=== PATIENT | male | born 1945 | race Caucasian/White ===

== ENCOUNTER 2016-08-21 12:51 | Emergency (ER) | payer BC, MEDICARE ==
[~2016-08-21] VITALS: Ht 180.3 cm; Wt 92.0 kg
[2016-08-21 12:54] VITALS: BP 125/72; PULSE 100; RESP 20; TEMP 98.2; O2SAT 96
--- NOTE | 2016-08-21 13:20 | PD ---
HPI Chief Complaint: Complaint Time Seen by Provider: 13:06 Travel History International Travel<30 days: No Contact w/Intl Traveler<30days: No Traveled to known affect area: No History of Present Illness HPI This patient complains of inability to urinate. Duration 8 hours. Severity is moderate. He feels like his bladder is full and distended. He has history of enlarged prostate. He recently underwent biopsy to rule out prostate cancer but doesn't have results of that yet. Symptoms have no alleviating factors. PFSH Social History Alcohol Use: No Tobacco Use: No Substance Use: No Allergies-Medications (Allergen,Severity, Reaction): Coded Allergies: No Known Allergies (Unverified , 08/21/16) Review of Systems General / Constitutional: No: Fever Eyes: No: Visual changes HENT: No: Headaches Cardiovascular: No: Chest Pain or Discomfort Respiratory: No: Shortness of Breath Gastrointestinal: No: Abdominal Pain Genitourinary: Positive: Decreased Urinary Output, Hesitancy, No: Dysuria Musculoskeletal: No: Pain Skin: No Rash Neurologic: No: Weakness Psychiatric: No: Depression Endocrine: No: Polydipsia Hematologic/Lymphatic: No: Easy Bruising Physical Exam Narrative GENERAL: Well-nourished, well-developed patient in no apparent distress. SKIN: Focused skin assessment reveals no rash and nodules. Skin is Warm and dry. HEAD: Atraumatic. Normocephalic. EYES: Pupils equal and round. No scleral icterus. No injection or drainage. ENT: No nasal bleeding or discharge. Mucous membranes pink and moist. NECK: Trachea midline. No JVD. CARDIOVASCULAR: Regular rate and rhythm. No murmur appreciated. RESPIRATORY: No accessory muscle use. Clear to auscultation. Breath sounds equal bilaterally. GASTROINTESTINAL: Abdomen soft, some suprapubic tenderness and distention. Hepatic and splenic margins not palpable. MUSCULOSKELETAL: No obvious deformities. No clubbing. No cyanosis. No edema. NEUROLOGICAL: Awake and alert. No obvious cranial nerve deficits. Motor grossly within normal limits. Normal speech. PSYCHIATRIC: Appropriate mood and affect; insight and judgment normal. Data Data Last Documented VS Vital Signs Date Time Temp Pulse Resp B/P Pulse Ox O2 Delivery O2 Flow Rate FiO2 08/21/16 12:54 98.2 100 20 125/72 96 Room Air Orders Urinary Catheter Insert/Apply (08/21/16 13:12) [facility] Medical Decision Making Medical Screen Exam Complete: Yes Emergency Medical Condition: Yes Medical Record Reviewed: Yes Differential Diagnosis Urinary retention, urethral stricture, BPH Narrative Course I have reviewed the patient's electronic medical record. Vega catheter placed. Drained out approximate 1.5 L Feels improved now that his bladder is drained. He is switched to a leg bag He currently has a appointment with his urologist Dr. Whitney on , in 4 days time. Diagnosis Primary Impression: Acute urinary retention Additional Instructions: Follow up with urologist in 4 days as scheduled Med/Other Pt SpecificInfo: Other Disposition: DISCHARGE HOME Condition: Stable Best Mann MD Aug 21, 2016 13:20
== END 2016-08-21 16:42 | disposition home or self-care (01) ==
LOC: NEPC 12:51
DX: R33.9 Retention of urine, unspecified (principal)
CPT/HCPCS: 51702

== ENCOUNTER 2016-08-23 09:54 | Inpatient (IN) | payer MEDICARE ==
[~2016-08-23] VITALS: Ht 180.3 cm; Wt 91.5 kg
[2016-08-23] VITALS (14 sets, daily range): BP systolic 84–121; BP diastolic 47–63; PULSE 79–114; RESP 18–24; TEMP 98.3–99.3; O2SAT 89–97
[2016-08-23] MEDS ORDERED: SODIUM CHLOR 0.9% 1000 ML INJ 1,000 ML IV ONE ×3 (10:02)
--- NOTE | 2016-08-23 10:07 | PD ---
HPI Chief Complaint: General Weakness Time Seen by Provider: 10:02 Travel History International Travel<30 days: No Contact w/Intl Traveler<30days: No Traveled to known affect area: No History of Present Illness HPI The patient is a 70-year-old male who presents emergency department for generalized weakness and fever. The patient underwent biopsy of his prostate last week by his urologist on Monday, Dr. Whitney. The patient was seen in the emergency department on Monday for urinary retention and had a Vega catheter placed. The patient states her last several days he has had some increasing generalized malaise, weakness, hematuria, and dry and nonproductive cough. EMS stated that the patient's temperature was 102.5 axillary when they arrived and the patient was tachycardic. He does complain of some generalized weakness with some diffuse myalgias, dry nonproductive cough , but denies any abdominal pain. He denies any nausea or vomiting, but states he had multiple episodes of diarrhea last night. Symptoms are moderate, there are no current alleviating or exacerbating factors. PFSH Past Medical History Cancer: Yes (TESTICULAR ) Cardiovascular Problems: Yes High Cholesterol: Yes Hypertension: Yes Insomnia: Yes Past Surgical History Abdominal Surgery: Yes (HERNIA SX) Gynecologic Surgery: Yes (TESTICLE CA WITH TESTICLE REMOVALX1) Social History Alcohol Use: No Tobacco Use: No Substance Use: No Allergies-Medications (Allergen,Severity, Reaction): Coded Allergies: No Known Allergies (Unverified , 08/23/16) Review of Systems Except as stated in HPI: all other systems reviewed are Neg General / Constitutional: Positive: Fever HENT: No: Lightheadedness Cardiovascular: No: Chest Pain or Discomfort Respiratory: Positive: Cough, No: Shortness of Breath Gastrointestinal: Positive: Diarrhea, No: Nausea, Vomiting, Abdominal Pain Genitourinary: Positive: Other (as noted in history of present illness) Musculoskeletal: Positive: Myalgias, Weakness Physical Exam Narrative GENERAL: Awake, alert, pleasant 70-year-old male who appears his stated age and is in no acute respiratory distress. SKIN: Focused skin assessment warm/dry. HEAD: Atraumatic. Normocephalic. EYES: Pupils equal and round. No scleral icterus. No injection or drainage. ENT: No nasal bleeding or discharge. Dry mucous membranes. NECK: Trachea midline. No JVD. CARDIOVASCULAR: Regular, tachycardic with a heart rate of 120. RESPIRATORY: No accessory muscle use. Diminished breath sounds in the right base. GASTROINTESTINAL: Abdomen soft, non-tender, nondistended. No rebound tenderness. Genitourinary: Vega catheter in place. Dry diarrhea noted over the scrotum. MUSCULOSKELETAL: No obvious deformities. No clubbing. No cyanosis. No edema. NEUROLOGICAL: Awake and alert. No obvious cranial nerve deficits. Motor grossly within normal limits. Normal speech. Nonfocal. PSYCHIATRIC: Appropriate mood and affect; insight and judgment normal. Data Data Last Documented VS Vital Signs Date Time Temp Pulse Resp B/P Pulse Ox O2 Delivery O2 Flow Rate FiO2 08/23/16 13:25 98.3 97 20 86/55 97 Room Air Orders Electrocardiogram (08/23/16 10:02) Complete Blood Count With Diff (08/23/16 10:02) Comprehensive Metabolic Panel (08/23/16 10:02) Lactic Acid Sepsis Protocol (08/23/16 10:02) Lipase (08/23/16 10:02) Urinalysis - C+S If Indicated (08/23/16 10:02) Blood Culture (08/23/16 10:02) Chest, Single Ap (08/23/16 10:02) Blood Gas Venous (Vbg) (08/23/16 10:02) Blood Glucose (08/23/16 10:02) Ecg Monitoring (08/23/16 10:02) Iv Access Insert/Monitor (08/23/16 10:02) Oximetry (08/23/16 10:02) Oxygen Administration (08/23/16 10:02) Sodium Chlor 0.9% 1000 Ml Inj (Ns 1000 M (08/23/16 10:02) Sodium Chlor 0.9% 1000 Ml Inj (Ns 1000 M (08/23/16 10:02) Sodium Chlor 0.9% 1000 Ml Inj (Ns 1000 M (08/23/16 10:02) Acetaminophen (Tylenol) (08/23/16 10:15) Ct Abd/Pel W/O Iv Contrast (08/23/16 ) Urine Culture (08/23/16 10:45) Ceftriaxone Inj (Rocephin Inj) (08/23/16 11:30) Piperacil-Tazo 4.5 Gm Premix (Zosyn 4.5 (08/23/16 13:00) Vancomycin Inj (Vancomycin Inj) (08/23/16 13:00) Sodium Chlor 0.9% 1000 Ml Inj (Ns 1000 M (08/23/16 13:00) Admit Order (Ed Use Only) (08/23/16 13:22) Labs Laboratory Tests Test 08/23/16 08/23/16 08/23/16 08/23/16 09:05 10:05 10:20 10:45 White Blood Count 10.8 TH/MM3 Red Blood Count 4.07 MIL/MM3 Hemoglobin 11.9 GM/DL Hematocrit 36.0 % Mean Corpuscular Volume 88.4 FL Mean Corpuscular Hemoglobin 29.2 PG Mean Corpuscular Hemoglobin 33.0 % Concent Red Cell Distribution Width 13.7 % Platelet Count 146 TH/MM3 Mean Platelet Volume 8.7 FL Neutrophils (%) (Auto) 96.4 % Lymphocytes (%) (Auto) 3.0 % Monocytes (%) (Auto) 0.5 % Eosinophils (%) (Auto) 0.0 % Basophils (%) (Auto) 0.1 % Neutrophils # (Auto) 10.4 TH/MM3 Lymphocytes # (Auto) 0.3 TH/MM3 Monocytes # (Auto) 0.1 TH/MM3 Eosinophils # (Auto) 0.0 TH/MM3 Basophils # (Auto) 0.0 TH/MM3 CBC Comment AUTO DIFF Differential Total Cells 100 Counted Neutrophils % (Manual) 76 % Band Neutrophils % 13 % Lymphocytes % 6 % Basophils % 1 % Neutrophils # (Manual) 10.0 TH/MM3 Metamyelocytes 4 % Nucleated Red Blood Cells 1 /100 WBC Differential Comment FINAL DIFF MANUAL Toxic Vacuolation Sodium Level 132 MEQ/L Potassium Level 3.7 MEQ/L Chloride Level 99 MEQ/L Carbon Dioxide Level 19.0 MEQ/L Anion Gap 14 MEQ/L Blood Urea Nitrogen 34 MG/DL Creatinine 2.29 MG/DL Estimat Glomerular Filtration 28 ML/MIN Rate Random Glucose 128 MG/DL Calcium Level 7.9 MG/DL Total Bilirubin 1.4 MG/DL Aspartate Amino Transf 553 U/L (AST/SGOT) Alanine Aminotransferase 335 U/L (ALT/SGPT) Alkaline Phosphatase 303 U/L Total Protein 6.3 GM/DL Albumin 2.9 GM/DL Lipase 67 U/L Lactic Acid Level 4.2 mmol/L Blood Gas Puncture Site I.V. Blood Gas Patient Temperature 98.6 Venous Blood pH 7.42 Venous Blood Partial Pressure 31 mmHg CO2 Venous Blood Partial Pressure 22 mmHg O2 Venous Blood HCO3 19 mmol/L Venous Blood Oxygen Saturation 45 % Venous Blood Oxygen Content 7.6 Vol % Venous Blood Base Excess -4.3 mmol/L Oxygen Delivery Device ROOM AIR Blood Gas Inspired Oxygen 21 % Urine Color YELLOW Urine Turbidity HAZY Urine pH 5.5 Urine Specific [place] 1.012 Urine Protein 300 OR GREATER mg/dL Urine Glucose (UA) 100 mg/dL Urine Ketones TRACE mg/dL Urine Occult Blood LARGE Urine Nitrite NEG Urine Bilirubin SMALL Urine Urobilinogen 0.2 MG/DL Urine Leukocyte Esterase LARGE Urine RBC /hpf Urine WBC 109 /hpf Urine Squamous Epithelial 2 /hpf Cells Urine Amorphous Sediment FEW Urine Bacteria MOD /hpf Urine Hyaline Casts 16 /lpf Urine Mucus FEW /lpf Microscopic Urinalysis Comment CATH-CULTURE IND MDM Medical Decision Making Medical Screen Exam Complete: Yes Emergency Medical Condition: Yes Medical Record Reviewed: Yes Interpretation(s) EKG reveals sinus tachycardia with a heart rate of 113. Q wave noted in lead 3. Last Impressions Chest X-Ray 08/23/16 1002 Signed Impressions: Service Date/Time: Tuesday, August 23, 2016 10:13 - CONCLUSION: No acute disease. Lamont Perkins MD Last Impressions Chest X-Ray 08/23/16 1002 Signed Impressions: Service Date/Time: Tuesday, August 23, 2016 10:13 - CONCLUSION: No acute disease. Lamont Perkins MD Abdomen/Pelvis CT 08/23/16 0000 Signed Impressions: Service Date/Time: Tuesday, August 23, 2016 11:44 - CONCLUSION: 1. Diverticulosis without diverticulitis. 2. Enlarged prostate. 3. 4. There are 2 right renal masses noted which measures soft tissue density possibly hemorrhagic or proteinaceous cysts however indeterminate. MRI abdomen with and without contrast recommended for further evaluation. 5. Probable appendicoliths within the appendix Lamont Perkins MD Laboratory Tests Test 08/23/16 08/23/16 08/23/16 08/23/16 09:05 10:05 10:20 10:45 White Blood Count 10.8 TH/MM3 Red Blood Count 4.07 MIL/MM3 Hemoglobin 11.9 GM/DL Hematocrit 36.0 % Mean Corpuscular Volume 88.4 FL Mean Corpuscular Hemoglobin 29.2 PG Mean Corpuscular Hemoglobin 33.0 % Concent Red Cell Distribution Width 13.7 % Platelet Count 146 TH/MM3 Mean Platelet Volume 8.7 FL Neutrophils (%) (Auto) 96.4 % Lymphocytes (%) (Auto) 3.0 % Monocytes (%) (Auto) 0.5 % Eosinophils (%) (Auto) 0.0 % Basophils (%) (Auto) 0.1 % Neutrophils # (Auto) 10.4 TH/MM3 Lymphocytes # (Auto) 0.3 TH/MM3 Monocytes # (Auto) 0.1 TH/MM3 Eosinophils # (Auto) 0.0 TH/MM3 Basophils # (Auto) 0.0 TH/MM3 CBC Comment AUTO DIFF Differential Total Cells 100 Counted Neutrophils % (Manual) 76 % Band Neutrophils % 13 % Lymphocytes % 6 % Basophils % 1 % Neutrophils # (Manual) 10.0 TH/MM3 Metamyelocytes 4 % Nucleated Red Blood Cells 1 /100 WBC Differential Comment FINAL DIFF MANUAL Toxic Vacuolation Sodium Level 132 MEQ/L Potassium Level 3.7 MEQ/L Chloride Level 99 MEQ/L Carbon Dioxide Level 19.0 MEQ/L Anion Gap 14 MEQ/L Blood Urea Nitrogen 34 MG/DL Creatinine 2.29 MG/DL Estimat Glomerular Filtration 28 ML/MIN Rate Random Glucose 128 MG/DL Calcium Level 7.9 MG/DL Total Bilirubin 1.4 MG/DL Aspartate Amino Transf 553 U/L (AST/SGOT) Alanine Aminotransferase 335 U/L (ALT/SGPT) Alkaline Phosphatase 303 U/L Total Protein 6.3 GM/DL Albumin 2.9 GM/DL Lipase 67 U/L Lactic Acid Level 4.2 mmol/L Blood Gas Puncture Site I.V. Blood Gas Patient Temperature 98.6 Venous Blood pH 7.42 Venous Blood Partial Pressure 31 mmHg CO2 Venous Blood Partial Pressure 22 mmHg O2 Venous Blood HCO3 19 mmol/L Venous Blood Oxygen Saturation 45 % Venous Blood Oxygen Content 7.6 Vol % Venous Blood Base Excess -4.3 mmol/L Oxygen Delivery Device ROOM AIR Blood Gas Inspired Oxygen 21 % Urine Color YELLOW Urine Turbidity HAZY Urine pH 5.5 Urine Specific [place] 1.012 Urine Protein 300 OR GREATER mg/dL Urine Glucose (UA) 100 mg/dL Urine Ketones TRACE mg/dL Urine Occult Blood LARGE Urine Nitrite NEG Urine Bilirubin SMALL Urine Urobilinogen 0.2 MG/DL Urine Leukocyte Esterase LARGE Urine RBC /hpf Urine WBC 109 /hpf Urine Squamous Epithelial 2 /hpf Cells Urine Amorphous Sediment FEW Urine Bacteria MOD /hpf Urine Hyaline Casts 16 /lpf Urine Mucus FEW /lpf Microscopic Urinalysis Comment CATH-CULTURE IND Differential Diagnosis Differential diagnosis includes sepsis, UTI, complicated UTI, pneumonia, acute kidney injury, dehydration, colitis, enteritis, bacteremia, septicemia. Narrative Course IV was established, labs are drawn and sent, and the patient was placed on cardiac telemetry monitoring and continuous pulse oximetry monitoring. EKG was ordered and interpreted. Chest x-ray was obtained. Catheter UA was sent to lab. The patient was administered IV fluids. Blood culture and lactic acid were sent to lab. Chest x-rays unremarkable. UA reveals RBCs and WBCs. White count is normal, however, bands are elevated. Lactic acid is elevated at 4.2. The patient's LFTs are elevated, therefore, CT of the abdomen and pelvis was ordered. CT reveals appendicoliths and renal cyst and/or masses, no evidence of acute cholecystitis. The patient received 3 L of IV fluids, however, his blood pressure started to trend downwards with a systolic in the 80s. The patient was awake and alert. However, he does meet septic shock criteria. The patient's primary physician, Dr. Valencia, was paged for admission. I will discuss with Dr. Valencia in regards to admitting to himself versus the [facility]. The patient was placed on IV fluids. I discussed the patient with Dr. Valencia who agrees with admission to the [facility], he will stop by the [facility] to evaluate the patient later. The on-call [facility] was paged for admission. Critical Care Narrative Aggregate critical care time was 35 minutes. Time to perform other separately billable procedures was not included in the critical care time. My time did not include minutes spent treating any other patients simultaneously or on activities that did not directly contribute to the patient's treatment. The services I provided to this patient were to treat and/or prevent clinically significant deterioration that could result in: Hypotension, hypoxia, anoxia, arrhythmia, septic shock. I provided critical care services requiring my management, as noted below: Chart data review, documentation time, medication orders and management, vital sign assessments/reviewing monitor data, ordering and reviewing lab tests, ordering and interpreting/reviewing x-rays and diagnostic studies, care of the patient and discussion of the patient with the admitting physicians. Sepsis Criteria SIRS Criteria (2 or more): Temp > 100.9 or < 96.8, Heart rate over 90 Sepsis Criteria (SIRS+source): Infect source susp/known Severe Sepsis (+one): Lactate >2 Septic Shock Criteria: Unresponsive to 30ml/kg fluid bolus, Lactic acid >=4 Multiple Organ Dysfunction Syn: Evidence -2 organs failing Criteria Outcome: Meets septic shock criteria, Meets multiple organ dys. criteria Physician Communication Physician Communication I discussed the patient with Dr. Valencia who agrees with admission to the [facility]. The on-call [facility] was paged for admission. I discussed the patient Dr. Rangel who agrees with admission. Diagnosis Primary Impression: Septic shock Additional Impressions: UTI (urinary tract infection) Qualified Code: T83.511A - Urinary tract infection associated with indwelling urethral catheter, initial encounter Lactic acidosis Admitting Information Admitting Physician Requests: Admit Condition: Stable Jaxson Espinosa MD Aug 23, 2016 10:07
[2016-08-23] MEDS ORDERED: ACETAMINOPHEN 325 MG TAB PO ONE (10:15)
[2016-08-23 10:21] LABS: AUTOMATED NEUTROPHIL # 10.4 TH/MM3 (1.8-7.7); BASOPHIL % 0.1 % (0.0-2.0); LYMPHOCYTE # 0.3 TH/MM3 (1.0-4.8); MEAN CELL VOLUME 88.4 FL (80.0-100.0); MEAN CORPUSCULAR HEMOGLOBIN 29.2 PG (27.0-34.0); MONO % 0.5 % (0.0-8.0); NEUT % 96.4 % (16.0-70.0); PLATELET COUNT 146 TH/MM3 (150-450); RED BLOOD COUNT 4.07 MIL/MM3 (4.50-5.90); RED CELL DISTRIBUTION WIDTH 13.7 % (11.6-17.2); WHITE BLOOD COUNT 10.8 TH/MM3 (4.0-11.0)
[2016-08-23 10:27] LABS: HEMO FLAGS AUTO DIFF
--- NOTE | 2016-08-23 10:28 | RADRPT ---
EXAM DATE/TIME: 08/23/2016 10:13 [facility] COMPARISON: No previous studies available for comparison. INDICATIONS : Shortness of breath, fever, and general weakness. MEDICAL HISTORY : Prostate. SURGICAL HISTORY : None. ENCOUNTER: Initial ACUITY: 2 days PAIN SCORE: 0/10 LOCATION: Bilateral chest FINDINGS: A single view of the chest demonstrates the lungs to be symmetrically aerated without evidence of mas s, infiltrate or effusion. The cardiomediastinal contours are unremarkable. Osseous structures are intact. CONCLUSION: No acute disease. Lamont Perkins MD on August 23, 2016 at 10:25 Board Certified Radiologist. This report was verified electronically.
[2016-08-23 10:30] LABS: BLOOD GAS VENOUS BASE EXCESS -4.3 mmol/L (-2-2); BLOOD GAS VENOUS HCO3 19 mmol/L (22-26); BLOOD GAS VENOUS O2 CONTENT 7.6 Vol % (9.0-17.0); BLOOD GAS VENOUS O2 HGB SAT 45 % (70-76); BLOOD GAS VENOUS PCO2 31 mmHg (44-48); BLOOD GAS VENOUS PO2 22 mmHg (35-40); BLOOD GAS VENOUS pH 7.42 (7.360-7.400); CRITICAL VALUE YES; DRAW SITE I.V.; FIO2 21 %; OXYGEN DEVICE ROOM AIR; STAT YES; TEMP CORR TO 98.6
[2016-08-23 10:37] LABS: ALT (GPT) 335 U/L (12-78)
[2016-08-23 10:39] LABS: ALKALINE PHOSPHATASE 303 U/L (45-117); TOTAL BILIRUBIN ADULT 1.4 MG/DL (0.2-1.0)
[2016-08-23 10:48] LABS: ANION GAP 14 MEQ/L (5-15); AST (GOT) 553 U/L (15-37); BLOOD UREA NITROGEN 34 MG/DL (7-18); CHLORIDE 99 MEQ/L (98-107); GLOMERULAR FILTRATION RATE 28 ML/MIN (>89); POTASSIUM 3.7 MEQ/L (3.5-5.1); SODIUM (NA) 132 MEQ/L (136-145)
[2016-08-23 11:01] LABS: BANDS 13 % (0-6); BASOPHILS 1 % (0-2); CORRECTED NUCLEATED RBC 1 /100 WBC (0-0); METAMYELOCYTES 4 % (0-1); POLYS (SEG NEUTROPHILS) 76 % (16-70); WBC DIFF SAMPLE 100
[2016-08-23 11:03] LABS: SCAN/DIFF FINAL DIFF MANUAL
[2016-08-23 11:06] LABS: BACTERIA, URINE MOD /hpf; HYALINE CAST, URINE 16 /lpf (RARE); MUCUS URINE FEW /lpf (OCC); SQUAMOUS EPITHELIAL CELL URINE 2 /hpf (0-5)
[2016-08-23 11:07] LABS: BLOOD, URINE LARGE (NEG); GLUCOSE,URINE 100 mg/dL (NEG); KETONE, URINE TRACE mg/dL (NEG); NITRITE,URINE NEG (NEG); PH, URINE 5.5 (5.0-8.5); URINE COLOR YELLOW (YELLW/STRAW)
[2016-08-23 11:08] LABS: COMMENT (UR) CATH-CULTURE IND; CULTURE IF INDICATED CATH CULTURE IND
[2016-08-23] MEDS ORDERED: cefTRIAXone INJ 1,000 MG in SODIUM CHLORIDE 0.9% INJ 100 ML IV ONE (11:30)
--- NOTE | 2016-08-23 12:08 | RADRPT ---
EXAM DATE/TIME: 08/23/2016 11:44 [facility] COMPARISON: No previous studies available for comparison. INDICATIONS : Fever with elevated LFTs, weakness. ORAL CONTRAST: No oral contrast ingested. RADIATION DOSE: 10.75 CTDIvol (mGy) MEDICAL HISTORY : Cardiovascular disease. Hypertension. Carcinoma, testicular. SURGICAL HISTORY : Testicles removed ENCOUNTER: Initial ACUITY: 1 day PAIN SCALE: 5/10 LOCATION: lower quadrant TECHNIQUE: Volumetric scanning of the abdomen and pelvis was performed. Using automated exposure control and ad justment of the mA and/or kV according to patient size, radiation dose was kept as low as reasonably achievable to obtain optimal diagnostic quality images. DICOM format image data is available electro nically for review and comparison. FINDINGS: There is mild honeycombing at the bases. No pleural or pericardial effusions. There is an exophytic m ass off the lateral right kidney lower pole measuring 2 x 2.3 cm and an adjacent more anterior 1.2 cm exophytic mass with soft tissue attenuation. Most likely these represent hemorrhagic or proteinaceou s cyst however the possibility of a solid renal mass should be excluded. Atherosclerotic calcificatio ns of the aorta and iliac vessels are noted. The urinary bladder contains a Vega catheter. There is air seen anteriorly within the nondistended bladder and the bladder is collapsed. A 6.9 x 6.5 cm pros zhao gland is noted. There is diverticulosis of the sigmoid colon without evidence of diverticulitis. The appendix contains appendicoliths versus retained contrast from previous contrast study. Small fa t containing umbilical hernia. CONCLUSION: 1. Diverticulosis without diverticulitis. 2. Enlarged prostate. 3. 4. There are 2 right renal masses noted which measures soft tissue density possibly hemorrhagic or pr oteinaceous cysts however indeterminate. MRI abdomen with and without contrast recommended for furthe r evaluation. 5. Probable appendicoliths within the appendix Lamont Perkins MD on August 23, 2016 at 12:02 Board Certified Radiologist. This report was verified electronically.
[2016-08-23 12:13] LABS: LACTIC ACID GHOST NOT REPORTABLE
[2016-08-23] MEDS ORDERED: PIPERACIL-TAZO 4.5 GM PREMIX 100 ML IV ONE (13:00)
[2016-08-23] MEDS ORDERED: VANCOMYCIN INJ 1,000 MG in SODIUM CHLOR 0.9% 250 ML INJ 250 ML IV ONE (13:00)
--- NOTE | 2016-08-23 13:06 | EKG ---
Date Performed: 08/23/2016 Time Performed: 10:15:04 PTAGE: 70 years EKG: SINUS TACHYCARDIA ABNORMAL RHYTHM ECG NO PREVIOUS TRACING DOCTOR: Riley Bragg Interpretating Date/Time 08/23/2016 13:04:34
[2016-08-23] MEDS: SODIUM CHLOR 0.9% 1000 ML INJ 1,000 ML IV SCH ×2 (13:24→21:26)
[2016-08-23] MEDS ORDERED: MISCELLANEOUS NURSING INFORMATION XX SCH (13:45)
[2016-08-23] MEDS ORDERED: ONDANSETRON HCL 4 MG/2 ML VIAL IV PRN (13:45)
[2016-08-23] MEDS ORDERED: CHLORHEXIDINE GLUCONATE 2 % 1 PACK (2 CLOTHS) TOP PRN (13:45)
--- NOTE | 2016-08-23 13:57 | HHI.HP ---
[facility] Service Critical Care Medicine Primary Care Physician Kj Valencia MD Admission Diagnosis severe sepsis with septic shock, complicated UTI, lactic acidosis Diagnosis: Chief Complaint: chills Travel History International Travel<30 Days: No Contact w/Intl Traveler <30 Da: No Traveled to Known Affected Are: No History of Present Illness This is a 70yM who is otherwise previously healthy. he presents today with fever , chills and weakness. About a week ago he had an outpatient prostate biopsy for elevated PSA and enlarged prostate. He presented on Monday to the ER with urinary retention and had a liang catheter placed at that time and was planning to follow-up with urology as an outpatient. today he re-presents with new-onset fever, chills, weakness, fatigue x 1 day. he was febrile in the ER. he has a normal wbc but bandemia. a CT abd/pelvis was significant for enlarged prostate, possible apendicolith, and diverticulosis. He also had mildly elevated LFTs. He had a lactate > 4 and received 4 L ivf at which point he remained slightly hypotensive with map of 66 mmHg and sbp 88. Critical care medicine is consulted for severe sepsis and possibly early septic shock, source likely urine vs. prostatitis. I evaluated the patient in the emergency department. He denied chest pain, abdominal pain, shortness of breath, n/v. does endorse mild diarrhea. Review of Systems Constitutional: COMPLAINS OF: Diaphoretic episodes, Fatigue, Fever, Chills, DENIES: Weight gain, Weight loss, Dizziness, Change in appetite, Night Sweats Endocrine: DENIES: Heat/cold intolerance, Polydipsia, Polyuria Eyes: DENIES: Blurred vision, Photosensitivity, Double Vision Ears, nose, mouth, throat: DENIES: Throat pain, Hoarseness Respiratory: DENIES: Cough, Wheezing, Hemoptysis, Sputum production, Shortness of breath Cardiovascular: DENIES: Chest pain, Palpitations, Syncope, Dyspnea on Exertion , Lower Extremity Edema Gastrointestinal: COMPLAINS OF: Diarrhea, DENIES: Abdominal pain, Black stools , Bloody stools, Constipation, Nausea, Vomiting Genitourinary: DENIES: Urinary frequency, Urinary incontinence Musculoskeletal: DENIES: Back pain, Neck pain Neurologic: DENIES: Abnormal gait, Headache, Localized weakness Past Family Social History Allergies: Coded Allergies: No Known Allergies (Unverified , 08/23/16) Past Medical History enlarged prostate, being evaluated by urologist recent urinary retention, s/p liang catheter placement Past Surgical History recent prostate biopsy Reported Medications none Active Ordered Medications See MAR Family History reviewed and found to be noncontributory to his acute illness Social History denies tob, etoh, doa. Physical Exam Vital Signs Vital Signs Date Time Temp Pulse Resp B/P Pulse Ox O2 Delivery O2 Flow Rate FiO2 08/23/16 13:25 98.3 97 20 86/55 97 Room Air 08/23/16 11:45 101 18 84/47 95 Room Air 08/23/16 10:45 110 18 114/56 95 Room Air 08/23/16 10:06 113 20 96 Room Air 08/23/16 10:01 99.3 114 20 121/63 95 Physical Exam GENERAL: Elderly male, lying in bed, mild distress HEENT: Normocephalic. Atraumatic. Pupils equal, round, reactive, conjugate. Mucous membranes are dry NECK: Trachea is midline. There is no JVD. CHEST: Mildly tachypneic. Equal chest rise. Clear to auscultation. CARDIOVASCULAR: Tachycardic rate, regular rhythm. Sinus by telemetry. Map of 66 ABDOMEN: Soft, nontender, nondistended. No guarding. MUSCULOSKELETAL: Pulses 2+. No peripheral edema. NEUROLOGICAL: RASS 0. CAM -. GCS 15. No gross focal motor or sensory deficits Laboratory Laboratory Tests Test 08/23/16 08/23/16 08/23/16 08/23/16 09:05 10:05 10:20 10:45 White Blood Count 10.8 Red Blood Count 4.07 Hemoglobin 11.9 Hematocrit 36.0 Mean Corpuscular Volume 88.4 Mean Corpuscular Hemoglobin 29.2 Mean Corpuscular Hemoglobin 33.0 Concent Red Cell Distribution Width 13.7 Platelet Count 146 Mean Platelet Volume 8.7 Neutrophils (%) (Auto) 96.4 Lymphocytes (%) (Auto) 3.0 Monocytes (%) (Auto) 0.5 Eosinophils (%) (Auto) 0.0 Basophils (%) (Auto) 0.1 Neutrophils # (Auto) 10.4 Lymphocytes # (Auto) 0.3 Monocytes # (Auto) 0.1 Eosinophils # (Auto) 0.0 Basophils # (Auto) 0.0 CBC Comment AUTO DIFF Differential Total Cells 100 Counted Neutrophils % (Manual) 76 Band Neutrophils % 13 Lymphocytes % 6 Basophils % 1 Neutrophils # (Manual) 10.0 Metamyelocytes 4 Nucleated Red Blood Cells 1 Differential Comment FINAL DIFF MANUAL Toxic Vacuolation Sodium Level 132 Potassium Level 3.7 Chloride Level 99 Carbon Dioxide Level 19.0 Anion Gap 14 Blood Urea Nitrogen 34 Creatinine 2.29 Estimat Glomerular Filtration 28 Rate Random Glucose 128 Calcium Level 7.9 Total Bilirubin 1.4 Aspartate Amino Transf 553 (AST/SGOT) Alanine Aminotransferase 335 (ALT/SGPT) Alkaline Phosphatase 303 Total Protein 6.3 Albumin 2.9 Lipase 67 Lactic Acid Level 4.2 Blood Gas Puncture Site I.V. Blood Gas Patient Temperature 98.6 Venous Blood pH 7.42 Venous Blood Partial Pressure 31 CO2 Venous Blood Partial Pressure 22 O2 Venous Blood HCO3 19 Venous Blood Oxygen Saturation 45 Venous Blood Oxygen Content 7.6 Venous Blood Base Excess -4.3 Oxygen Delivery Device ROOM AIR Blood Gas Inspired Oxygen 21 Urine Color YELLOW Urine Turbidity HAZY Urine pH 5.5 Urine Specific [place] 1.012 Urine Protein 300 OR GREATER Urine Glucose (UA) 100 Urine Ketones TRACE Urine Occult Blood LARGE Urine Nitrite NEG Urine Bilirubin SMALL Urine Urobilinogen 0.2 Urine Leukocyte Esterase LARGE Urine RBC Urine WBC 109 Urine Squamous Epithelial 2 Cells Urine Amorphous Sediment FEW Urine Bacteria MOD Urine Hyaline Casts 16 Urine Mucus FEW Microscopic Urinalysis Comment CATH-CULTURE IND Date/Time Procedure Status Source Growth 08/23/16 10:45 Urine Culture Received Urine Catheterized Urine Pending 08/23/16 09:05 Aerobic Blood Culture Received Blood Peripheral Pending 08/23/16 09:05 Anaerobic Blood Culture Received Blood Peripheral Pending Result Diagram: 08/23/16 0905 08/23/16 0905 Imaging Last Impressions Chest X-Ray 08/23/16 1002 Signed Impressions: Service Date/Time: Tuesday, August 23, 2016 10:13 - CONCLUSION: No acute disease. Lamont Perkins MD Abdomen/Pelvis CT 08/23/16 0000 Signed Impressions: Service Date/Time: Tuesday, August 23, 2016 11:44 - CONCLUSION: 1. Diverticulosis without diverticulitis. 2. Enlarged prostate. 3. 4. There are 2 right renal masses noted which measures soft tissue density possibly hemorrhagic or proteinaceous cysts however indeterminate. MRI abdomen with and without contrast recommended for further evaluation. 5. Probable appendicoliths within the appendix Lamont Perkins MD Assessment and Plan Assessment and Plan Assessment: 70yM with recent prostate biopsy now with Severe sepsis likely secondary to urinary tract infection versus prostatitis. Given his borderline blood pressures, I agree with admission to the ICU for close monitoring. We will cover with empiric antibiotics, and if he improves, will transfer him to floor tomorrow. Plan: Severe Sepsis -- Zosyn 3.375gm iv q8h given renal function -- will not continue vancomycin as he is not healthcare associated -- mivf @ 125 cc/hr (s/p 4L ivf in ER) -- daily cbc Lactic Acidosis -- secondary to sepsis -- trend lactates -- fluid resuscitation as above. Urinary tract infection vs. Prostatitis -- abx as above. -- f/u blood cultures, urine culture Acute Kidney Injury -- likely secondary to severe sepsis -- daily bmp -- strict I/Os -- continue liang Elevated liver enzymes -- could be early shock liver secondary to hypoperfusion from sepsis -- liver ultrasound -- trend LFTs Urinary Retention -- continue liang -- likely follow up with outpatient urology Dispo: admit to ICU. Code Status Full Code Mickey Rangel MD Aug 23, 2016 13:57
[2016-08-23] MEDS ORDERED: RESP: ALBUTEROL 2.5 MG/IPRATROPIUM 0.5 MG NEB (PRN) INH (14:45)
[2016-08-23] MEDS ORDERED: RESP: ALBUTEROL 2.5 MG/IPRATROPIUM 0.5 MG NEB (SCH) NEB ONE (14:45)
[2016-08-23] MEDS: RESP: ALBUTEROL 2.5 MG/IPRATROPIUM 0.5 MG NEB (SCH) INH ×2 (15:35→21:08)
[2016-08-23] MEDS ORDERED: PIPERACIL-TAZO 3.375 GM PREMIX 50 ML IV SCH (20:00)
[2016-08-23] MEDS: HEPARIN SODIUM - SQ 10,000 UNITS/ML VIAL SQ SCH (21:28)
[2016-08-23] MEDS: ALPRAZolam 0.25 MG TAB PO PRN (21:28)
[2016-08-23] MEDS: MELATONIN 5 MG TAB PO PRN (21:28)
[2016-08-24] VITALS (17 sets, daily range): BP systolic 92–126; BP diastolic 54–82; PULSE 72–94; RESP 18–43; TEMP 97.6–98.7; O2SAT 91–99
[2016-08-24] MEDS: ALPRAZolam 0.25 MG TAB PO PRN (01:04)
[2016-08-24] MEDS: RESP: ALBUTEROL 2.5 MG/IPRATROPIUM 0.5 MG NEB (SCH) INH ×6 (03:34→23:31)
[2016-08-24] MEDS: CHLORHEXIDINE GLUCONATE 2 % 1 PACK (2 CLOTHS) TOP SCH (04:00)
[2016-08-24 04:59] LABS: HEMATOCRIT 33.9 % (39.0-51.0); MEAN CELL VOLUME 89.4 FL (80.0-100.0); MEAN CORPUSCULAR HEMOGLOBIN 29.9 PG (27.0-34.0); MEAN CORPUSCULAR HGB CONC 33.4 % (32.0-36.0); PLATELET COUNT 147 TH/MM3 (150-450); RED BLOOD COUNT 3.79 MIL/MM3 (4.50-5.90); RED CELL DISTRIBUTION WIDTH 13.9 % (11.6-17.2); REVIEW FLAG FINAL; WHITE BLOOD COUNT 29.8 TH/MM3 (4.0-11.0)
[2016-08-24 05:28] LABS: BICARBONATE 17.9 MEQ/L (21.0-32.0); INDIRECT BILIRUBIN 0.5 MG/DL (0.0-0.8); POTASSIUM 3.6 MEQ/L (3.5-5.1); TOTAL BILIRUBIN ADULT 0.9 MG/DL (0.2-1.0)
[2016-08-24 05:40] LABS: BLOOD GAS BASE EXCESS -10.3 mmol/L (-2-2); BLOOD GAS CARBOXYHEMOGLOBIN 1.3 % (0-4); BLOOD GAS HCO3 14 mmol/L (22-26); BLOOD GAS METHEMOGLOBIN 1.1 % (0-2); BLOOD GAS O2 HGB SATURATION 94 % (90-100); BLOOD GAS OXYGEN CONTENT 14.7 Vol % (12.0-20.0); BLOOD GAS PCO2 27 mmHg (38-42); BLOOD GAS PO2 85 mmHg (61-120); BLOOD GAS TOTAL HGB 11.1 G/DL (12.0-16.0); TEMP CORR TO 98.6
[2016-08-24 05:41] LABS: CRITICAL VALUE YES
[2016-08-24 05:42] LABS: DRAW SITE RT RADIAL; FIO2 60 %; LITER FLOW 10 L/M; NUMBER OF ARTERIAL PUNCTURES 1; OXYGEN DEVICE SM; STAT NO; ULNAR PULSE PRESENT
[2016-08-24] MEDS ORDERED: POTASSIUM CHLORIDE 20 MEQ CONTROLLED RELEASE TAB PO ONE (06:00)
[2016-08-24] MEDS ORDERED: FUROSEMIDE 20 MG/2 ML VIAL IV PUSH ONE (06:00)
[2016-08-24] MEDS ORDERED: methylPREDNISolone SOD SUCC 125 MG/2 ML VIAL IV PUSH ONE (06:00)
[2016-08-24 06:02] LABS: CALCIUM-PROTEIN CORRECTED 7.8 MG/DL (8.5-10.1)
--- NOTE | 2016-08-24 06:03 | RADRPT ---
EXAM DATE/TIME: 08/24/2016 05:29 [facility] COMPARISON: CHEST SINGLE AP, August 23, 2016, 10:13. INDICATIONS : Shortness of breath. MEDICAL HISTORY : Hypertension. Cardiovascular disease. SURGICAL HISTORY : None. ENCOUNTER: Subsequent ACUITY: 2 days PAIN SCORE: Non-responsive. LOCATION: Bilateral chest FINDINGS: A single view of the chest demonstrates bibasilar densities. Heart normal in size. Osseous structure s are intact. CONCLUSION: Bibasilar densities greater left lower lobe. Jay Renner MD on August 24, 2016 at 6:00 Board Certified Radiologist. This report was verified electronically.
[2016-08-24] MEDS ORDERED: FUROSEMIDE 40 MG TAB PO ONE (06:15)
[2016-08-24] MEDS ORDERED: methylPREDNISolone SOD SUCC 125 MG/2 ML VIAL IM ONE (06:15)
[2016-08-24] MEDS ORDERED: SODIUM BICARBONATE 8.4% INJ 50 MEQ/50 ML SYR IV PUSH ONE (06:15)
[2016-08-24] MEDS: HEPARIN SODIUM - SQ 10,000 UNITS/ML VIAL SQ SCH ×3 (07:01→21:58)
[2016-08-24] MEDS ORDERED: POTASSIUM CHLOR 20 MEQ PREMIX 100 ML IV PRN ×2 (09:15)
[2016-08-24] MEDS ORDERED: POTASSIUM PHOSPHATE INJ 30 MMOL in SODIUM CHLOR 0.9% 250 ML INJ 250 ML IV PRN (09:15)
[2016-08-24] MEDS ORDERED: MAGNESIUM OXIDE 400 MG TAB PO PRN (09:15)
[2016-08-24] MEDS ORDERED: POTASSIUM PHOSPHATE MONOBASIC 500 MG TAB PO/TUBE PRN (09:15)
[2016-08-24] MEDS ORDERED: MAGNESIUM SULFATE INJ 4 GM in SODIUM CHLORIDE 0.9% INJ 92 ML IV PRN (09:15)
[2016-08-24] MEDS ORDERED: SODIUM PHOSPHATE INJ 30 MMOL in SODIUM CHLOR 0.9% 250 ML INJ 240 ML IV PRN (09:15)
[2016-08-24] MEDS ORDERED: MAGNESIUM SULFATE INJ 2 GM in SODIUM CHLORIDE 0.9% INJ 96 ML IV PRN (09:15)
[2016-08-24] MEDS ORDERED: POTASSIUM CHLOR 40 MEQ PREMIX 100 ML IV PRN ×2 (09:15)
[2016-08-24] MEDS ORDERED: POTASSIUM PHOSPHATE MONOBASIC 500 MG TAB PO PRN (09:15)
[2016-08-24] MEDS: RESP: BUDESONIDE 0.5 MG/2 ML NEB NEB SCH ×2 (09:17→19:47)
--- NOTE | 2016-08-24 09:23 | HHI.CCPN ---
Subjective Remarks/Hospital Course Hospital Course: This is a 70yM who is otherwise previously healthy. he presents today with fever , chills and weakness. About a week ago he had an outpatient prostate biopsy for elevated PSA and enlarged prostate. He presented on Monday to the ER with urinary retention and had a liang catheter placed at that time and was planning to follow-up with urology as an outpatient. today he re-presents with new-onset fever, chills, weakness, fatigue x 1 day. he was febrile in the ER. he has a normal wbc but bandemia. a CT abd/pelvis was significant for enlarged prostate, possible apendicolith, and diverticulosis. He also had mildly elevated LFTs. He had a lactate > 4 and received 4 L ivf at which point he remained slightly hypotensive with map of 66 mmHg and sbp 88. Critical care medicine is consulted for severe sepsis and possibly early septic shock, source likely urine vs. prostatitis. I evaluated the patient in the emergency department. He denied chest pain, abdominal pain, shortness of breath, n/v. does endorse mild diarrhea. Subjective: 08/24: overnight, pulmonary status worsened, now requiring bipap. heavy smoker. started on methylpred. also given 1 dose lasix overnight. echo ordered for this morning. no history of heart failure, and persistent lactic acidosis. blood cultures growing GNRs in 4/4 bottles. urine culture pending. Cr improving. Objective Vital Signs Date Time Temp Pulse Resp B/P Pulse Ox O2 Delivery O2 Flow Rate FiO2 08/24/16 06:00 73 08/24/16 06:00 98 60 08/24/16 04:00 97.6 18 119/58 08/24/16 01:30 Simple Mask 6.00 Intake and Output 08/23/16 08/23/16 08/24/16 08:00 16:00 00:00 Intake Total 437 ml Output Total 850 ml Balance -413 ml Result Diagram: 08/24/16 0442 08/24/16 0442 Other Results Laboratory Tests Test 08/23/16 08/24/16 10:20 05:26 Blood Gas Puncture Site I.V. RT RADIAL Blood Gas Patient Temperature 98.6 98.6 Venous Blood pH 7.42 (7.360-7.400) Venous Blood Partial Pressure 31 mmHg (44-48) CO2 Venous Blood Partial Pressure 22 mmHg (35-40) O2 Venous Blood HCO3 19 mmol/L (22-26) Venous Blood Oxygen Saturation 45 % (70-76) Venous Blood Oxygen Content 7.6 Vol % (9.0-17.0) Venous Blood Base Excess -4.3 mmol/L (-2-2) Oxygen Delivery Device ROOM AIR SM Blood Gas Inspired Oxygen 21 % 60 % Blood Gas HCO3 14 mmol/L (22-26) Blood Gas Base Excess -10.3 mmol/L (-2-2) Blood Gas Oxygen Saturation 94 % (90-100) Arterial Blood pH 7.35 (7.380-7.420) Arterial Blood Partial 27 mmHg (38-42) Pressure CO2 Arterial Blood Partial 85 mmHg Pressure O2 (61-120) Arterial Blood Oxygen Content 14.7 Vol % (12.0-20.0) Arterial Blood 1.3 % (0-4) Carboxyhemoglobin Arterial Blood Methemoglobin 1.1 % (0-2) Blood Gas Hemoglobin 11.1 G/DL (12.0-16.0) Blood Gas Liter Flow 10 L/M Imaging Last Impressions Chest X-Ray 08/23/16 1002 Signed Impressions: Service Date/Time: Tuesday, August 23, 2016 10:13 - CONCLUSION: No acute disease. Lamont Perkins MD Abdomen/Pelvis CT 08/23/16 0000 Signed Impressions: Service Date/Time: Tuesday, August 23, 2016 11:44 - CONCLUSION: 1. Diverticulosis without diverticulitis. 2. Enlarged prostate. 3. 4. There are 2 right renal masses noted which measures soft tissue density possibly hemorrhagic or proteinaceous cysts however indeterminate. MRI abdomen with and without contrast recommended for further evaluation. 5. Probable appendicoliths within the appendix Lamont Perkins MD Objective Remarks GENERAL: Elderly male, lying in bed, continues to be in distress. on BiPAP. HEENT: Normocephalic. Atraumatic. Pupils equal, round, reactive, conjugate. Mucous membranes are dry NECK: Trachea is midline. There is no JVD. BiPAP in place. CHEST: Mildly tachypneic. Equal chest rise. CARDIOVASCULAR: normal rate, regular rhythm. Sinus by telemetry. ABDOMEN: Soft, nontender, nondistended. No guarding. MUSCULOSKELETAL: Pulses 2+. No peripheral edema. NEUROLOGICAL: RASS 0. CAM -. GCS 15. No gross focal motor or sensory deficits A/P Assessment and Plan Assessment: 70yM with recent prostate biopsy now with Severe sepsis likely secondary to urinary tract infection versus prostatitis. Now with worsening acute hypoxemia, unclear if this is volume overload vs. COPD exacerbation vs. early ARDS. will obtain echo. will avoid large additional volume resuscitation, but will also not continue forced diuresis in the setting of persistent lactic acidosis. f/u cultures. increase zosyn for renal clearance. respiratory status is concerning and if he worsens, may require intubation. Continue ICU level care in this complex patient. Not on pathway. Plan: Severe Sepsis -- Zosyn 3.375gm increase to q6h for improving renal function. -- hold mivf. -- daily cbc Lactic Acidosis- persistent. -- secondary to sepsis -- trend lactates -- hold further resuscitation (see above discussion) Gram negative salvador bacteremia -- zosyn as above. -- f/u speciation and sensitivities. Urinary tract infection vs. Prostatitis -- abx as above. -- f/u blood cultures, urine culture Acute Kidney Injury- improving. -- likely secondary to severe sepsis -- daily bmp -- strict I/Os -- continue liang Elevated liver enzymes- improving. -- could be early shock liver secondary to hypoperfusion from sepsis -- liver ultrasound -- trend LFTs Urinary Retention -- continue liang -- likely follow up with outpatient urology Dispo: remain in the ICU. clinical course is not improving as I would expect. worsening pulmonary status. Mickey Rangel MD Aug 24, 2016 09:23
[2016-08-24] MEDS: PIPERACIL-TAZO 3.375 GM PREMIX 50 ML IV SCH ×3 (10:16→21:58)
--- NOTE | 2016-08-24 10:48 | RADRPT ---
EXAM DATE/TIME: 08/24/2016 08:35 [facility] COMPARISON: No previous studies available for comparison. INDICATIONS : Increased lab values. MEDICAL HISTORY : Hypercholesterolemia. Hypertension. Carcinoma, testicular. Insomnia. SURGICAL HISTORY : Hernia surgery. Testicle removed. ENCOUNTER: Initial ACUITY: 2 days PAIN SCORE: 0/10 LOCATION: Bilateral upper quadrant MEASUREMENTS: LIVER: 17.9 cm length COMMON DUCT: 3 mm RIGHT KIDNEY: 10.8 x 5.5 x 5.7 cm SPLEEN: 11.1 cm length FINDINGS: Ultrasound of the upper abdomen demonstrates increased echogenicity of the liver compatible with fatt y infiltration or hepatocellular disease. The spleen is unremarkable. The gallbladder is normal witho ut wall thickening or pericholecystic fluid. The pancreas is not visualized secondary to overlying marilynn wel gas. Small bilateral pleural effusions are identified. There is a single simple cyst in the right kidney measuring 2 cm. The spleen is normal in size and free of focal defects. CONCLUSION: 1. Echogenic liver compatible with fatty infiltration or hepatocellular disease. Nonvisualization of the pancreas Sanket Cardenas MD on August 24, 2016 at 10:44 Board Certified Radiologist. This report was verified electronically.
[2016-08-24] MEDS: methylPREDNISolone SOD SUCC 40 MG/1 ML VIAL IV PUSH SCH ×2 (15:03→21:58)
--- NOTE | 2016-08-24 16:11 | PD.CONS ---
History of Present Illness Service INTERNAL MEDICINE Consult Requested By МАРИЯ PRINCE M.D. Reason for Consult MANAGEMENT OF MEDICAL PROBLEMS Primary Care Physician KJ VALENCIA MD Diagnoses: History of Present Illness This patient is a 70 year old male who was admitted to the [facility] Intensive Care Unit due to presentation of fever, chills and urinary retention. His complete presentation is that of Severe Sepsis with Hypotension and Lactic Acidosis. He has received aggressive fluid resuscitation , intravenous antibiotics and aggressive respiratory measures. He has respiratory insufficiency with hypoxemia. He is being seen for management of medical problems. Review of Systems Constitutional: COMPLAINS OF: Fatigue, Chills Respiratory: COMPLAINS OF: Cough, Shortness of breath Gastrointestinal: COMPLAINS OF: Diarrhea Genitourinary: COMPLAINS OF: Dysuria Past Family Social History Allergies: Coded Allergies: No Known Allergies (Unverified , 08/23/16) Past Medical History 1. Hypertension. 2. Hyperlipidemia. 3. Cervical Disc Disease. 4. Diverticulitis. 5. Insomnia. 6. Gout. 7. Left Testicular Cancer. 8. Benign Prostatic Hypertrophy. 9. Elevated PSA. 10. Erectile Dysfunction. 11. Atopic Dermatitis. 12. Macular Degeneration of the Left Eye. Past Surgical History 1. Left Orchiectomy. 2. Colonoscopy. Family History Father is at age 78. The cause of is unknown to him. Mother is at age 83. The cause of is unknown to him. Social History He is single. He has smoked for greater than forty years at one and a half to two packs of cigarettes daily. Cigarettes were discontinued as of nine years ago. He denies use of alcohol. He is not using recreational drugs at this time. Physical Exam Vital Signs Vital Signs Date Time Temp Pulse Resp B/P Pulse Ox O2 Delivery O2 Flow Rate FiO2 08/24/16 12:00 77 08/24/16 12:00 98.3 77 43 92/54 95 08/24/16 10:00 87 08/24/16 09:18 94 Nasal Cannula 4.00 08/24/16 09:00 72 08/24/16 08:00 98.1 81 36 105/57 99 08/24/16 08:00 81 08/24/16 06:00 73 08/24/16 06:00 98 60 08/24/16 04:00 97.6 84 18 119/58 96 08/24/16 04:00 84 08/24/16 02:00 80 08/24/16 01:30 92 Simple Mask 6.00 08/24/16 00:00 98.7 75 20 126/82 91 08/24/16 00:00 75 08/23/16 22:00 88 08/23/16 21:08 94 Nasal Cannula 3.00 08/23/16 20:00 98.3 79 24 91/50 90 08/23/16 20:00 79 08/23/16 18:00 89 08/23/16 17:30 86 08/23/16 17:01 83 08/23/16 16:30 86 90/53 94 08/23/16 16:30 86 Physical Exam GENERAL: This is a well-nourished, well-developed patient, in no apparent distress. SKIN: No rashes, ecchymoses or lesions. Cool and dry. HEAD: Atraumatic. Normocephalic. No temporal or scalp tenderness. EYES: Pupils equal round and reactive. Extraocular motions intact. No scleral icterus. No injection or drainage. ENT: Nose without bleeding, purulent drainage or septal hematoma. Throat without erythema, tonsillar hypertrophy or exudate. Uvula midline. Airway patent. NECK: Trachea midline. No JVD or lymphadenopathy. Supple, nontender, no meningeal signs. CARDIOVASCULAR: Regular rate and rhythm without murmurs, gallops, or rubs. RESPIRATORY: Clear to auscultation. Breath sounds equal bilaterally. No wheezes , rales, or rhonchi. GASTROINTESTINAL: Abdomen soft, non-tender, nondistended. No hepato-splenomegaly , or palpable masses. No guarding. MUSCULOSKELETAL: Extremities without clubbing, cyanosis, or edema. No joint tenderness, effusion, or edema noted. No calf tenderness. Negative Homans sign bilaterally. NEUROLOGICAL: Awake and alert. Cranial nerves II through XII intact. Motor and sensory grossly within normal limits. Five out of 5 muscle strength in all muscle groups. Normal speech. Laboratory Laboratory Tests Test 08/24/16 08/24/16 04:42 05:26 White Blood Count 29.8 Red Blood Count 3.79 Hemoglobin 11.3 Hematocrit 33.9 Mean Corpuscular Volume 89.4 Mean Corpuscular Hemoglobin 29.9 Mean Corpuscular Hemoglobin 33.4 Concent Red Cell Distribution Width 13.9 Platelet Count 147 Mean Platelet Volume 8.3 Sodium Level 131 Potassium Level 3.6 Chloride Level 100 Carbon Dioxide Level 17.9 Anion Gap 13 Blood Urea Nitrogen 27 Creatinine 1.55 Estimat Glomerular Filtration 44 Rate Random Glucose 112 Lactic Acid Level 2.7 Calcium Level 7.3 Protein Corrected Calcium 7.8 Total Bilirubin 0.9 Direct Bilirubin 0.4 Indirect Bilirubin 0.5 Aspartate Amino Transf 147 (AST/SGOT) Alanine Aminotransferase 191 (ALT/SGPT) Alkaline Phosphatase 126 Total Protein 6.2 Albumin 2.6 Blood Gas Puncture Site RT RADIAL Blood Gas Patient Temperature 98.6 Blood Gas HCO3 14 Blood Gas Base Excess -10.3 Blood Gas Oxygen Saturation 94 Arterial Blood pH 7.35 Arterial Blood Partial 27 Pressure CO2 Arterial Blood Partial 85 Pressure O2 Arterial Blood Oxygen Content 14.7 Arterial Blood 1.3 Carboxyhemoglobin Arterial Blood Methemoglobin 1.1 Blood Gas Hemoglobin 11.1 Oxygen Delivery Device SM Blood Gas Liter Flow 10 Blood Gas Inspired Oxygen 60 Date/Time Procedure Status Source Growth 08/23/16 10:45 Urine Culture - Preliminary Resulted Urine Catheterized Urine Gram Negative Rudolph 08/23/16 09:05 Aerobic Blood Culture - Preliminary Resulted Blood Peripheral Gram Negative Rudolph 08/23/16 09:05 Anaerobic Blood Culture - Preliminary Resulted Gram Negative Rudolph Result Diagram: 08/24/16 0442 08/24/16 044 Assessment and Plan Assessment and Plan ASSESSMENT 1. Acute and Severe Sepsis with Hypotension. 2. Urinary Tract Infection, on admission. 3. Acute Kidney Injury. 4. Elevated Hepatic Enzymes. 5. Lactic Acidosis. 6. Acute Urinary Retention. 7. Gram Negative Bacteremia. 8. Acute Respiratory Failure. 9. Anemia with Thrombocytopenia. PLAN 1. Continue with aggressive respiratory treatments. 2. Continue with aggressive intravenous antibiotics. 3. Follow intake and output closely. 4. Follow up laboratory assessment. 5. DVT, PE and PUD prophylaxis. Kj Valencia MD Aug 24, 2016 16:10
--- NOTE | 2016-08-24 21:08 | ECHRPT ---
Indication: Shortness of breath CONCLUSIONS Normal left ventricular size. Mild concentric left ventricular hypertrophy. The left ventricular systolic function is normal with an estimated ejection fraction in the range of 60-65%. No regional wall motion abnormalities are present. Left ventricular diastolic function parameters are normal. BP: 119 / 58 HR: 84 Rhythm: Sinus MEASUREMENTS (Male / Female) Normal Values Technical Quality:Fair 2D ECHO LV Diastolic Diameter PLAX 3.9 cm 4.2 - 5.9 / 3.9 - 5.3 cm LV Systolic Diameter PLAX 2.6 cm IVS Diastolic Thickness 1.0 cm 0.6 - 1.0 / 0.6 - 0.9 cm LVPW Diastolic Thickness 1.0 cm 0.6 - 1.0 / 0.6 - 0.9 cm LV Relative Wall Thickness 0.5 LVOT Diameter 2.1 cm Aortic Root Diameter 3.2 cm LA Systolic Diameter LX 2.3 cm 3.0 - 4.0 / 2.7 - 3.8 cm M-MODE AV Cusp Separation MM 1.5 cm DOPPLER AV Peak Velocity 196.0 cm/s AV Peak Gradient 15.4 mmHg AV Mean Gradient 7.0 mmHg AV Velocity Time Integral 31.6 cm LVOT Peak Velocity 100.0 cm/s LVOT Peak Gradient 4.0 mmHg LVOT Velocity Time Integral 19.7 cm LVOT Cardiac Index 2605.3 cm/minm AV Area Cont Eq vti 2.2 cm AV Area Cont Eq pk 1.8 cm Mitral E Point Velocity 99.7 cm/s Mitral A Point Velocity 73.5 cm/s Mitral E to A Ratio 1.4 LV E' Lateral Velocity 13.6 cm/s Mitral E to LV E' Lateral Ratio 7.3 LV E' Septal Velocity 15.3 cm/s Mitral E to LV E' Septal Ratio 6.5 TR Peak Velocity 247.0 cm/s TR Peak Gradient 24.4 mmHg PV Peak Velocity 79.7 cm/s PV Peak Gradient 2.5 mmHg FINDINGS LEFT VENTRICLE Normal left ventricular size. Mild concentric left ventricular hypertrophy. The left ventricular systolic function is normal with an estimated ejection fraction in the range of 60-65%. No regional wall motion abnormalities are present. Left ventricular diastolic function parameters are normal. RIGHT VENTRICLE Normal right ventricular size and systolic function. LEFT ATRIUM The left atrial size is normal. RIGHT ATRIUM The right atrial size is normal. ATRIAL SEPTUM Normal atrial septal thickness without atrial level shunting by limited color doppler interrogation. AORTA The aortic root and proximal ascending aorta are normal in size on limited imaging. MITRAL VALVE Structurally normal mitral valve. Trace mitral valve regurgitation. AORTIC VALVE Trileaflet aortic valve. No aortic valve stenosis or regurgitation. TRICUSPID VALVE Structurally normal tricuspid valve. There is trace tricuspid valve regurgitation. Normal estimated pulmonary pressures. PULMONARY VALVE The pulmonary valve is not well visualized. VESSELS The inferior vena cava is normal in size. PERICARDIUM No pericardial effusion. Edmundo Garcia MD, FACC (Electronically Signed) Final Date:24 August 2016 21:07
[2016-08-24] MEDS: MELATONIN 5 MG TAB PO PRN (21:59)
[2016-08-25] VITALS (7 sets, daily range): BP systolic 120–145; BP diastolic 64–69; PULSE 68–83; RESP 18–20; TEMP 97.9–98.4; O2SAT 90–100
[2016-08-25] MEDS: RESP: ALBUTEROL 2.5 MG/IPRATROPIUM 0.5 MG NEB (SCH) INH ×2 (03:30→07:56)
[2016-08-25] MEDS: CHLORHEXIDINE GLUCONATE 2 % 1 PACK (2 CLOTHS) TOP SCH (04:00)
[2016-08-25] MEDS: PIPERACIL-TAZO 3.375 GM PREMIX 50 ML IV SCH ×2 (04:30→09:54)
[2016-08-25 05:17] LABS: HEMATOCRIT 32.6 % (39.0-51.0); MEAN CELL VOLUME 86.7 FL (80.0-100.0); MEAN CORPUSCULAR HEMOGLOBIN 29.5 PG (27.0-34.0); PLATELET COUNT 155 TH/MM3 (150-450); RED BLOOD COUNT 3.76 MIL/MM3 (4.50-5.90); RED CELL DISTRIBUTION WIDTH 13.9 % (11.6-17.2); REVIEW FLAG FINAL; WHITE BLOOD COUNT 23.5 TH/MM3 (4.0-11.0)
[2016-08-25] MEDS: HEPARIN SODIUM - SQ 10,000 UNITS/ML VIAL SQ SCH (05:30)
[2016-08-25] MEDS: methylPREDNISolone SOD SUCC 40 MG/1 ML VIAL IV PUSH SCH (05:30)
[2016-08-25 05:47] LABS: POTASSIUM 3.6 MEQ/L (3.5-5.1)
[2016-08-25 05:49] LABS: INDIRECT BILIRUBIN 0.3 MG/DL (0.0-0.8); TOTAL BILIRUBIN ADULT 0.5 MG/DL (0.2-1.0)
[2016-08-25] MEDS: RESP: BUDESONIDE 0.5 MG/2 ML NEB NEB SCH (07:56)
[2016-08-25] MEDS ORDERED: INSULIN NovoLIN REGULAR SUPPLEMENTAL SCALE SQ SCH (08:30)
[2016-08-25] MEDS ORDERED: GLUCAGON 1 MG/ML VIAL OTHER PRN (08:30)
[2016-08-25] MEDS ORDERED: DEXTROSE 50% IN WATER 50 ML VIAL(D50) IV PRN (08:30)
--- NOTE | 2016-08-25 08:48 | HHI.CCPN ---
Subjective Remarks/Hospital Course Hospital Course: This is a 70yM who is otherwise previously healthy. he presents today with fever , chills and weakness. About a week ago he had an outpatient prostate biopsy for elevated PSA and enlarged prostate. He presented on Monday to the ER with urinary retention and had a liang catheter placed at that time and was planning to follow-up with urology as an outpatient. today he re-presents with new-onset fever, chills, weakness, fatigue x 1 day. he was febrile in the ER. he has a normal wbc but bandemia. a CT abd/pelvis was significant for enlarged prostate, possible apendicolith, and diverticulosis. He also had mildly elevated LFTs. He had a lactate > 4 and received 4 L ivf at which point he remained slightly hypotensive with map of 66 mmHg and sbp 88. Critical care medicine is consulted for severe sepsis and possibly early septic shock, source likely urine vs. prostatitis. I evaluated the patient in the emergency department. He denied chest pain, abdominal pain, shortness of breath, n/v. does endorse mild diarrhea. Subjective: 08/24: overnight, pulmonary status worsened, now requiring bipap. heavy smoker. started on methylpred. also given 1 dose lasix overnight. echo ordered for this morning. no history of heart failure, and persistent lactic acidosis. blood cultures growing GNRs in 4/4 bottles. urine culture pending. Cr improving. 08/25 No events ovenright. Patient is off BIPAP . Awake and alert. Afebrile. Feeling better. Objective Vital Signs Date Time Temp Pulse Resp B/P Pulse Ox O2 Delivery O2 Flow Rate FiO2 08/25/16 07:58 100 08/25/16 06:00 68 08/25/16 04:00 98.0 18 120/64 08/24/16 19:52 21.00 08/24/16 09:18 Nasal Cannula 08/24/16 06:00 60 Intake and Output 08/24/16 08/24/16 08/25/16 08:00 16:00 00:00 Intake Total 627 ml 820 ml 303 ml Output Total 450 ml 1250 ml 1100 ml Balance 177 ml -430 ml -797 ml Result Diagram: 08/25/16 0456 08/25/16 0456 Other Results Laboratory Tests Test 08/24/16 08/25/16 17:32 04:56 Lactic Acid Level 3.3 mmol/L 1.6 mmol/L White Blood Count 23.5 TH/MM3 Red Blood Count 3.76 MIL/MM3 Hemoglobin 11.1 GM/DL Hematocrit 32.6 % Mean Corpuscular Volume 86.7 FL Mean Corpuscular Hemoglobin 29.5 PG Mean Corpuscular Hemoglobin 34.0 % Concent Red Cell Distribution Width 13.9 % Platelet Count 155 TH/MM3 Mean Platelet Volume 8.6 FL Sodium Level 137 MEQ/L Potassium Level 3.6 MEQ/L Chloride Level 106 MEQ/L Carbon Dioxide Level 20.0 MEQ/L Anion Gap 11 MEQ/L Blood Urea Nitrogen 36 MG/DL Creatinine 1.40 MG/DL Estimat Glomerular Filtration 50 ML/MIN Rate Random Glucose 167 MG/DL Calcium Level 8.2 MG/DL Total Bilirubin 0.5 MG/DL Direct Bilirubin 0.2 MG/DL Indirect Bilirubin 0.3 MG/DL Aspartate Amino Transf 69 U/L (AST/SGOT) Alanine Aminotransferase 137 U/L (ALT/SGPT) Alkaline Phosphatase 108 U/L Total Protein 6.4 GM/DL Albumin 2.6 GM/DL Imaging Last Impressions Liver Ultrasound 08/24/16 0000 Signed Impressions: Service Date/Time: Wednesday, August 24, 2016 08:35 - CONCLUSION: 1. Echogenic liver compatible with fatty infiltration or hepatocellular disease. Nonvisualization of the pancreas Sanket Cardenas MD Chest X-Ray 08/24/16 0000 Signed Impressions: Service Date/Time: Wednesday, August 24, 2016 05:29 - CONCLUSION: Bibasilar densities greater left lower lobe. Jay Renner MD Abdomen/Pelvis CT 08/23/16 0000 Signed Impressions: Service Date/Time: Tuesday, August 23, 2016 11:44 - CONCLUSION: 1. Diverticulosis without diverticulitis. 2. Enlarged prostate. 3. 4. There are 2 right renal masses noted which measures soft tissue density possibly hemorrhagic or proteinaceous cysts however indeterminate. MRI abdomen with and without contrast recommended for further evaluation. 5. Probable appendicoliths within the appendix Lamont Perkins MD Objective Remarks GENERAL: Patient is 70 yo lying in bed in no acute resp distress SKIN: Warm and dry. HEAD: Normocephalic. EYES: No scleral icterus. No injection or drainage. NECK: Supple, trachea midline. No JVD or lymphadenopathy. CARDIOVASCULAR: Regular rate and rhythm without murmurs, gallops, or rubs. RESPIRATORY: Breath sounds equal bilaterally. No accessory muscle use. GASTROINTESTINAL: Abdomen soft, non-tender, nondistended. MUSCULOSKELETAL: No cyanosis, or edema. BACK: Nontender without obvious deformity. No CVA tenderness. Neuro: Awake and alert. A/P Assessment and Plan Imp 1) Resp Insuff 2)Sepsis 3) Gram Negative bacteremia 4)UTI- urine cx: E.coli 5)Leukocytosis 6)JASPER- improving 7)Lactic acidemia- cleared 8)Anemia 9)Elevated LFT's Plan: Neuro: Awake and alert Pulm: Continue with oxygen keep sat >92% Bronchodilators( DuoNeb, Pulmicort), NIPPV PRN for resp distress On Solumederol 40mg Q8 CV: Monitor HR and BP keep MAP>65mmHg Lactic acid cleared. Echo showed EF 60-65%, no RWMA, normal diastolic function parameters : Monitor renal function, I/O's, electrolytes replacement per protocol Cr: 1.44 today, UO: 3650ml in 24 hrs GI: On PO diet Monitor LFT's,(trending down) US Liver: Echogenic liver compatible with fatty infiltration or hepatocellular disease. ID: Continue with abx ( Zosyn)monitor for signs of infections ( Fever, WBC) WBC is trending down 08/23 Urine cx: E.coli 08/23 BC: GNR, E.coli, recheck BC x 2 sets today Heme: Monitor CBC Endo: Place on SSI for glycemic control as patient is on IV steroids GI prophylaxis- on PO diet DVT prophylaxis - on SCD's and Heparin SQ Patient wants to leave AMA risks of leaving explained to patient which include resp depression. NM, hypotension and syncope from sepsis and even . He voiced understating and insisting on leaving AMA. Patient will be given AMA form to sign. Level 3 Luli Arias MD Aug 25, 2016 08:48
== END 2016-08-25 10:57 | disposition left against medical advice (07) | DRG 698 ==
LOC: NEPE 09:54 → NEDA 13:25 → HIMW 15:08
PROVIDERS: ADMIT Internal Medicine Critical Care Medicine; ATTEND Internal Medicine Critical Care Medicine
PROC: 5A09357 Assistance with Respiratory Ventilation, Less than 24 Consecutive Hours, Continuous Positive Airway Pressure (ICD-10-PCS; principal; 2016-08-24)
DX: T83.518A Infection and inflammatory reaction due to other urinary catheter, initial encounter (principal); R65.21 Severe sepsis with septic shock; J96.01 Acute respiratory failure with hypoxia; N17.9 Acute kidney failure, unspecified; E87.2 Acidosis; D69.6 Thrombocytopenia, unspecified; N39.0 Urinary tract infection, site not specified; B96.20 Unspecified Escherichia coli [E. coli] as the cause of diseases classified elsewhere; N40.0 Benign prostatic hyperplasia without lower urinary tract symptoms; R97.20 Elevated prostate specific antigen [PSA]; K57.90 Diverticulosis of intestine, part unspecified, without perforation or abscess without bleeding; I10 Essential (primary) hypertension; E78.5 Hyperlipidemia, unspecified; M10.9 Gout, unspecified; G47.00 Insomnia, unspecified; Z85.47 Personal history of malignant neoplasm of testis; H35.30 Unspecified macular degeneration; F17.210 Nicotine dependence, cigarettes, uncomplicated; D64.9 Anemia, unspecified; R74.8 Abnormal levels of other serum enzymes; K76.0 Fatty (change of) liver, not elsewhere classified
CPT/HCPCS: 36600; 71010; 74176; 76705; 76937; 80048; 80053; 80076; 81001; 82805; 83605; 83690; 84155; 85007; 85027; 87040; 87077; 87086; 87149; 87186; 87205; 87641; 93005; 93306; 94002; 94150; 94640; 94664; 94667; 94668; 96361; 96365; 96374; 96375; J0696; J1644; J2543; J2920; J2930; J3370; J7030; J7050; J7626